=== PATIENT | female | born 1980 | race Caucasian/White ===

== ENCOUNTER 2022-01-17 16:25 | Emergency (ER) | payer OTHER ==
[2022-01-17] MEDS ORDERED: RABIES VACCINE (PCEC)/PF 2.5 UNIT/VIAL IM ONE ×2 (16:29→17:07)
[2022-01-17 16:31] VITALS: BP 120/87; PULSE 77; TEMP 97.5; BMI 37.9
== END 2022-01-17 17:20 | disposition home or self-care (01) ==
LOC: FER 16:25
PROC: 3E0234Z Introduction of Serum, Toxoid and Vaccine into Muscle, Percutaneous Approach (ICD-10-PCS; principal; 2022-01-17)
DX: Z29.14 Encounter for prophylactic rabies immune globulin (principal)
CPT/HCPCS: 90675; 99284-25

== ENCOUNTER 2022-06-20 04:17 | Day surgery (SDC) | payer OTHER ==
[2022-06-20 07:22] VITALS: RESP 18; BMI 28.0
[2022-06-20] MEDS ORDERED: BUPIVACAINE HCL/PF 0.5% (5MG/ML) 10 ML VIAL ONE (07:28)
[2022-06-20] MEDS ORDERED: LIDOCAINE HCL/PF 1% SDV 5ML VIAL ONE (07:29)
[2022-06-20] MEDS ORDERED: BUPIVACAINE HCL/PF 0.5% (5MG/ML) 10 ML VIAL IJ ONE ×3 (07:50→08:29)
[2022-06-20] MEDS ORDERED: LIDOCAINE HCL 1% PRESERVATIVE FREE - 30ML VIAL IJ ONE ×2 (07:50→08:28)
[2022-06-20 09:21] VITALS: BP 117/73; PULSE 80; TEMP 97.7
== END 2022-06-20 09:29 | disposition home or self-care (01) ==
LOC: JASU-SURG 04:17
PROVIDERS: ATTEND Pain Medicine Pain Medicine
PROC: 3E0T33Z Introduction of Anti-inflammatory into Peripheral Nerves and Plexi, Percutaneous Approach (ICD-10-PCS; 2022-06-20)
PROC: 3E0T3BZ Introduction of Anesthetic Agent into Peripheral Nerves and Plexi, Percutaneous Approach (ICD-10-PCS; principal; 2022-06-20 08:30)
DX: M47.812 Spondylosis without myelopathy or radiculopathy, cervical region (principal)
CPT/HCPCS: 76000-TC-FY; 81025

== ENCOUNTER 2022-08-04 05:01 | Day surgery (SDC) | payer OTHER ==
[2022-08-02 15:16] VITALS: BMI 28.0
[2022-08-04] MEDS ORDERED: LIDOCAINE HCL/PF 1% SDV 5ML VIAL ONE (07:48)
[2022-08-04] MEDS ORDERED: BUPIVACAINE HCL 50 ML ONE (07:53)
[2022-08-04] MEDS ORDERED: BUPIVACAINE HCL/PF 0.5% (5MG/ML) 10 ML VIAL IJ ONE ×2 (08:23→09:20)
[2022-08-04] MEDS ORDERED: LIDOCAINE HCL 1% PRESERVATIVE FREE - 30ML VIAL IJ ONE (08:23)
[2022-08-04 09:59] VITALS: RESP 20
[2022-08-04 12:32] VITALS: BP 122/76; PULSE 66; TEMP 97
== END 2022-08-04 10:15 | disposition home or self-care (01) ==
LOC: JASU-SURG 05:01
PROVIDERS: ATTEND Pain Medicine Pain Medicine
PROC: BR14YZZ Fluoroscopy of Cervical Facet Joint(s) using Other Contrast (ICD-10-PCS; 2022-08-04)
PROC: 3E0T3BZ Introduction of Anesthetic Agent into Peripheral Nerves and Plexi, Percutaneous Approach (ICD-10-PCS; principal; 2022-08-04 08:30)
DX: M47.812 Spondylosis without myelopathy or radiculopathy, cervical region (principal)
CPT/HCPCS: 76000-TC-FY; 81025

== ENCOUNTER 2022-09-01 04:11 | Day surgery (SDC) | payer OTHER ==
[2022-08-30 16:51] VITALS: BMI 27.1
[~2022-09-01 04:11] MED LIST: BUPIVACAINE HCL/PF 0.5% (5MG/ML) 10 ML VIAL IJ ONE; LIDOCAINE HCL 1% PRESERVATIVE FREE - 30ML VIAL IJ ONE; LIDOCAINE HCL/PF 2% SDV 5ML VIAL INF ONE
[2022-09-01] MEDS ORDERED: LIDOCAINE HCL/PF 1% SDV 5ML VIAL ONE (07:22)
[2022-09-01] MEDS ORDERED: BUPIVACAINE HCL/PF 0.5% (5MG/ML) 10 ML VIAL ONE (07:22)
[2022-09-01] MEDS ORDERED: LIDOCAINE HCL 1% PRESERVATIVE FREE - 30ML VIAL IJ ONE (10:17)
[2022-09-01] MEDS ORDERED: LIDOCAINE HCL/PF 2% SDV 5ML VIAL INF ONE (10:18)
[2022-09-01] MEDS ORDERED: BUPIVACAINE HCL/PF 0.5% (5MG/ML) 10 ML VIAL IJ ONE (10:18)
[2022-09-01 11:31] VITALS: BP 125/85; PULSE 75; RESP 20; TEMP 97.2
== END 2022-09-01 11:30 | disposition home or self-care (01) ==
LOC: JASU-SURG 04:11
PROVIDERS: ATTEND Pain Medicine Pain Medicine
PROC: 3E0T3TZ Introduction of Destructive Agent into Peripheral Nerves and Plexi, Percutaneous Approach (ICD-10-PCS; principal; 2022-09-01 10:45)
PROC: BR14YZZ Fluoroscopy of Cervical Facet Joint(s) using Other Contrast (ICD-10-PCS; 2022-09-01 10:45)
DX: M47.812 Spondylosis without myelopathy or radiculopathy, cervical region (principal)
CPT/HCPCS: 76000-TC-FY; 81025

== ENCOUNTER 2022-11-21 04:13 | Day surgery (SDC) | payer OTHER ==
[2022-11-14 15:21] VITALS: BMI 27.1
[~2022-11-21 04:13] MED LIST changes: +IOHEXOL 180 MG/1 ML ML IJ ONE; +LIDOCAINE 1% P/F 10 MG/ML VIAL INF ONE; -LIDOCAINE HCL 1% PRESERVATIVE FREE - 30ML VIAL IJ ONE; +LIDOCAINE HCL 2% (50ML VIAL) SQ ONE; -LIDOCAINE HCL/PF 2% SDV 5ML VIAL INF ONE; +TRIAMCINOLONE ACET 40MG/1ML VIAL IJ ONE; +TRIAMCINOLONE ACETONIDE 40 MG/ML 10 ML VIAL IJ ONE
[2022-11-21] MEDS ORDERED: BUPIVACAINE HCL/PF 0.5% (5MG/ML) 10 ML VIAL ONE ×2 (07:21→07:23)
[2022-11-21] MEDS ORDERED: LIDOCAINE HCL/PF 1% SDV 5ML VIAL ONE ×2 (07:21→07:23)
[2022-11-21] MEDS ORDERED: DEXAMETHASONE SOD PHOSPHATE 10 MG/1 ML VIAL ONE (07:23)
[2022-11-21] MEDS ORDERED: LIDOCAINE HCL/PF 2% SDV 5ML VIAL ONE (07:23)
[2022-11-21 09:31] VITALS: RESP 18
[2022-11-21] MEDS ORDERED: LIDOCAINE HCL 2% (50ML VIAL) SQ ONE (10:07)
[2022-11-21] MEDS ORDERED: DEXAMETHASONE SOD PHOSPHATE 10 MG/1 ML VIAL IM ONE (10:07)
[2022-11-21] MEDS ORDERED: BUPIVACAINE HCL/PF 0.5% (5MG/ML) 10 ML VIAL IJ ONE (10:07)
[2022-11-21] MEDS ORDERED: LIDOCAINE 1% P/F 10 MG/ML VIAL INF ONE (10:07)
[2022-11-21 10:55] VITALS: BP 122/84; PULSE 82; TEMP 97.8
== END 2022-11-21 10:56 | disposition home or self-care (01) ==
LOC: JASU-SURG 04:13
PROVIDERS: ATTEND Pain Medicine Pain Medicine
PROC: 3E0T3TZ Introduction of Destructive Agent into Peripheral Nerves and Plexi, Percutaneous Approach (ICD-10-PCS; principal; 2022-11-21 09:00)
PROC: BR14YZZ Fluoroscopy of Cervical Facet Joint(s) using Other Contrast (ICD-10-PCS; 2022-11-21 09:00)
DX: M47.812 Spondylosis without myelopathy or radiculopathy, cervical region (principal)
CPT/HCPCS: 76000-TC-FY; 81025; J1100

== ENCOUNTER 2023-01-05 04:04 | Day surgery (SDC) | payer OTHER ==
[2023-01-01 16:22] VITALS: BMI 27.1
[2023-01-05] MEDS ORDERED: LIDOCAINE HCL/PF 1% SDV 5ML VIAL ONE (07:27)
[2023-01-05] MEDS ORDERED: DEXAMETHASONE SOD PHOSPHATE 10 MG/1 ML VIAL ONE (07:28)
[2023-01-05 08:32] VITALS: RESP 18
[2023-01-05 10:44] VITALS: TEMP 98.4
[2023-01-05] MEDS ORDERED: ACETAMINOPHEN 325 MG TABLET (FP) PO ONE ×2 (10:45)
[2023-01-05] MEDS ORDERED: ACETAMINOPHEN 325 MG TABLET (FP) ONE (10:47)
[2023-01-05 11:42] VITALS: BP 124/77; PULSE 81
== END 2023-01-05 11:30 | disposition home or self-care (01) ==
LOC: JASU-SURG 04:04
PROVIDERS: ATTEND Pain Medicine Pain Medicine
PROC: 3E0R3BZ Introduction of Anesthetic Agent into Spinal Canal, Percutaneous Approach (ICD-10-PCS; 2023-01-05)
PROC: 3E0R33Z Introduction of Anti-inflammatory into Spinal Canal, Percutaneous Approach (ICD-10-PCS; principal; 2023-01-05 10:17)
DX: M54.12 Radiculopathy, cervical region (principal)
CPT/HCPCS: 76000-TC-FY; 81025; J1100

== ENCOUNTER 2025-05-07 17:13 | Emergency (ER) | payer SELFPAY ==
[2025-05-07 17:22] VITALS: BP 116/84; PULSE 91; RESP 18; TEMP 98.1; BMI 33.3
[2025-05-07] MEDS ORDERED: KETOROLAC TROMETHAMINE 30 MG/1 ML VIAL ONE (18:01)
[2025-05-07] MEDS ORDERED: ACETAMINOPHEN 500 MG TABLET (FP) ONE (18:01)
[2025-05-07] MEDS: KETOROLAC TROMETHAMINE 30 MG/1 ML VIAL IM ONE (18:08)
[2025-05-07] MEDS: ACETAMINOPHEN 500 MG TABLET (FP) PO ONE (18:09)
== END 2025-05-07 19:31 | disposition home or self-care (01) ==
LOC: FER 17:13
PROC: 3E0233Z Introduction of Anti-inflammatory into Muscle, Percutaneous Approach (ICD-10-PCS; principal; 2025-05-07)
DX: M25.552 Pain in left hip (principal); M54.50 Low back pain, unspecified; R26.89 Other abnormalities of gait and mobility; X50.1XXA Overexertion from prolonged static or awkward postures, initial encounter
CPT/HCPCS: 99284-25